=== PATIENT | female | born 1985 | race Caucasian/White ===

== ENCOUNTER 2019-02-26 02:35 | Inpatient (IN) | payer OTHER ==
[2019-02-26 03:08] LABS: ABS Basophils 0.1 10^3/ul (0-0.2); ABS Lymphocytes 1.1 10^3/ul (1.0-4.8); ABS Monocytes 0.9 10^3/ul (0-0.8); ABS Neutrophils 18.8 10^3/ul (1.5-7.7); Eosinophil % 0.1 %; Hematocrit 37 % (35-47); Hemoglobin 12.3 g/dL (12.0-16.0); Lymphocyte % 5.2 %; Mean Corpuscular HGB Conc 34 g/dL (31-36); Mean Corpuscular Hemoglobin 30 pg (27-31); Mean Corpuscular Volume 88 fL (80-97); Mean Platelet Volume 8.6 fL (7.4-10.4); Platelet Count 224 10^3/uL (150-450); Red Blood Count 4.14 10^6 /uL (3.70-4.87); Red Cell Distribution Width 14 % (10-15); White Blood Count 20.9 10^3/uL (3.5-10.8)
[2019-02-26] MEDS ORDERED: Oxytocin in LR* 20 UNITS/1,000 ML BAG IVPB ONE ×2 (03:35→06:05)
[2019-02-26] MEDS ORDERED: Lactated Ringers 1000 ML Bag* 1,000 ML IV ONE (04:10)
[2019-02-26] MEDS ORDERED: Buffered Lidocaine 1% SYRIN* 1 ML/SYRINGE INTRADERM ONE (04:10)
--- NOTE | 2019-02-26 04:20 | HP ---
General Information - Reason for Visit 34 y/o at 40w4d in active labor. History of prior x 1 and SAB x 1. Attempted home . Presented to hospital after experiencing pain across her abdomen at the incision site while pushing. Found to be fully dilated and +2 on arrival. HONORIO. FHT 150bpm with moderate variabilty, variable decels with pushing. Delivered precipitously after arrival to hospital. - General Information Maternal Age: 34 Grav: 3 Para: 1 SAB: 1 IEA: 0 Estimated Due Date: 02/22/19 Determined By: LMP Gestational Age in Weeks/Days: 40w4d Maternal Blood Type and Rh: O Negative - Results this Serology/RPR Result: Non-Reactive Rubella Result: Non-Immune HBsAg Result: Negative HIV Result: Negative GBS Culture Result: Negative Past Medical History Delivery History: Hx C/Section - x 1 for NRFHT 4 years ago Pertinent Past Medical History: Non-Contributory - RH Negative, declined Rhogam this , per pt and general doc antibody negative earlier in Pertinent Past Surgical History: See Records Past Surgical History Comment: x 1 Pertinent Family History: Non-Contributory - Antepartal Records Antepartal Records: Reviewed, Complicated by: - Hx of x 1. RH Negative Review of Systems Constitutional: Uncomfortable CV Complaint: No Respiratory: Shortness of Breath: No Gastrointestinal: No Nausea/Vomiting, Normal Bowel Movement Genitourinary: Bleeding, Leaking Fluid Musculoskeletal: No Complaint Neurological: No Headache, No Visual Changes Movement: Normal Exam Allergies/Adverse Reactions: Allergies No Known Allergies Allergy (Verified 01/26/15 16:10) Temp 97.0 Pulse 92 RR 20 HP 155/80 O2sat 99% Lab Values - Entire Visit: Laboratory Tests 02/26/19 02/26/19 02:55 02:55 WBC 20.9 H RBC 4.14 Hgb 12.3 Hct 37 MCV 88 MCH 30 MCHC 34 RDW 14 Plt Count 224 MPV 8.6 Neut % (Auto) 90.0 Lymph % (Auto) 5.2 Rush % (Auto) 4.3 Eos % (Auto) 0.1 Baso % (Auto) 0.4 Absolute Neuts (auto) 18.8 H Absolute Lymphs (auto) 1.1 Absolute Monos (auto) 0.9 H Absolute Eos (auto) 0.0 Absolute Basos (auto) 0.1 Absolute Nucleated RBC 0.0 Nucleated RBC % 0.0 Blood Type O Negative Antibody Screen Negative - Measurements Height: 5 ft 4 in Weight: 180 lb Weight in lbs: 180.544297 Body Mass Index (BMI): 30.9 Pre- Weight: 125 lb 4.409 oz Weight Gained This : 54.724 lbs and 0.007 ozs - Exam Breast: Breast Exam Deferred CVA: No CVA Tenderness Extremities: No Edema Heart: Normal Rhythm/Heart Sounds HEENT: No Significant Findings Lungs: Clear Bilaterally Rectal: Rectal Exam Deferred Reflexes: DTR 2+ - Abdominal Exam Abdomen Exam: Fundal Height Consistent with Dates - Ultrasound/Biophysical Profile Ultrasound Status: Not Done Targeted Exam Findings See L&D Outpatient Visit Provider Note for Findings: Yes Cervical Exam: Complete Effacement: Complete Station: +2 Presenting Part: Vertex - HONORIO Membrane Status: SROM Amniotic Fluid Evaluation: Gross Rupture Bleeding/Discharge: Bloody Show EFM Findings - External Monitor Findings Baseline Heart Rate: 150 External Monitor Findings: Variability Moderate, Variable or Late Deceleration Pattern Present External Monitor Findings Comment: Moderate variability, variable decels with pushing Contractions: Regular, 45-90 Seconds Assessment/Plan - Assessment 34 y/o at 40w4d homebirth transfer secondary to pain in labor. Presented to hospital already fully dilated and pushing. Delivered shortly after arrival. - Plan Plan: Admit - Anticipate Vaginal Delivery Plan Comment: Admitted. IV placed. CBC and Type and Screen obtained. Delivered shortly after arrival while verbally discussing TOLAC/CS consent. Routine post care. Rhogam if infant Rh+
[2019-02-26] MEDS ORDERED: Glycerin ADULT SUPP PR PRN (04:33)
[2019-02-26] MEDS ORDERED: Witch Hazel PAD* JAR TOPICAL PRN (04:33)
[2019-02-26] MEDS ORDERED: Dibucaine 1% 28.35 GM TUBE PR PRN (04:33)
[2019-02-26] MEDS ORDERED: Acetaminophen TAB* 325 MG PO PRN (04:33)
--- NOTE | 2019-02-26 04:33 | PROCNOTE ---
[facility] OB: Delivery Note - Delivery A Date of : 02/26/19 Time of : 03:25 [place] Sex: Male Score 1 Minute: 9 Score 5 Minutes: 9 Gestational Age in Weeks and Days at Delivery: 40 Weeks and 4 Days Delivery Method: Spontaneous Vaginal Labor: Spontaneous Did Patient attempt ?: Yes, Successful Amniotic Fluid: Clear Estimated Blood Loss: 500 Anesthesia/Analgesia: None Delivered By: Daowod Steele JR - Nursery Level of Nursery: Regular/Bedside - Perineum Perineal Injury: 2nd Degree Perineal Injury Comment: 2nd degree laceration repaired in usual fashion with 2- 0 vicryl Perineal Repair: By Delivering Practioner - Events Delivery Events of Note: Pitocin Only After Delivery - Risk for Falls Delivered OB Patient- Risk for Falls: Heavy Bleeding Fall Risk: Patient is at High Risk for Falls - Additional Delivery Notes Additional Delivery Notes: 34 y/o at 40w4d transfer to hospital from homebirth setting secondary to pain. Pt has history of x 1 4 years prior for NRFHT. District Wire Chief presents with patient and brings patient's complete records. FHT exhibits moderate variability, there is no evidence of uterine dehiscence, tracing overall reassuring. Patient was found to be fully dilated and +2, delivered shortly after arrival. Apgars 9 and 9, boy. 2nd degree perineal laceration repaired in the usual fashion with 2-0 vicryl. Mother and doing well at time of this note.
[2019-02-26] MEDS ORDERED: Lactated Ringers 1000 ML Bag* 1,000 ML IV SCH ×2 (05:00)
[2019-02-26] MEDS ORDERED: Ammonia Inhalant* 1 EA AMP ONE (05:59)
[2019-02-26] MEDS: Ibuprofen TAB* 600 MG PO PRN ×3 (07:53→22:20)
[2019-02-26] MEDS ORDERED: Simethicone TAB* 80 MG TAB.CHEW PO SCH (08:30)
[2019-02-26] MEDS ORDERED: Lidocaine 1% INJ* 10 MG/ML 30 ML SDV ONE (09:44)
[2019-02-26] MEDS: Docusate CAP* 100 MG PO SCH ×3 (11:21→20:35)
[2019-02-26] MEDS ORDERED: RHO D Immune Globulin (HUMAN)* 300 MCG = 1,500 I.U. INJ IM ONE (12:02)
--- NOTE | 2019-02-26 15:15 | PN ---
Progress Note - Progress Note Date of Service: 02/26/19 Note: S: Pt is POD#0 s/p successful . Transfer from
[2019-02-27] MEDS: Ibuprofen TAB* 600 MG PO PRN (04:26)
[2019-02-27 06:49] LABS: ABS Lymphocytes 1.8 10^3/ul (1.0-4.8); ABS Monocytes 0.6 10^3/ul (0-0.8); ABS Neutrophils 9.6 10^3/ul (1.5-7.7); Eosinophil % 0.3 %; Hematocrit 24 % (35-47); Hemoglobin 8.1 g/dL (12.0-16.0); Mean Corpuscular HGB Conc 35 g/dL (31-36); Mean Corpuscular Hemoglobin 31 pg (27-31); Mean Corpuscular Volume 89 fL (80-97); Mean Platelet Volume 8.2 fL (7.4-10.4); Platelet Count 194 10^3/uL (150-450); Red Blood Count 2.65 10^6 /uL (3.70-4.87); Red Cell Distribution Width 14 % (10-15)
[2019-02-27] MEDS: Docusate CAP* 100 MG PO SCH (08:01)
[2019-02-27 08:13] VITALS: BP 107/63
[2019-02-27] MEDS ORDERED: Tetan/Diph/Pertus SYR(Tdap)* 0.5 ML SYR(BOOSTRIX) use SYR contains LATEX IM ONE (09:00)
[2019-02-27] MEDS ORDERED: Ferrous Gluconate TAB* 324 MG TAB PO SCH (09:00)
== END 2019-02-27 10:54 | disposition home or self-care (01) | DRG 560 ==
LOC: MCHOBOUT 02:35 → MCHOB 03:07
PROVIDERS: ADMIT Obstetrics & Gynecology; ATTEND Obstetrics & Gynecology
PROC: 10E0XZZ Delivery of Products of Conception, External Approach (ICD-10-PCS; principal; 2019-02-26)
PROC: 4A1HXCZ Monitoring of Products of Conception, Cardiac Rate, External Approach (ICD-10-PCS; 2019-02-26)
PROC: 0KQM0ZZ Repair Perineum Muscle, Open Approach (ICD-10-PCS; 2019-02-26)
DX: O48.0 Post-term pregnancy (principal); Z37.0 Single live birth; Z3A.40 40 weeks gestation of pregnancy; O76 Abnormality in fetal heart rate and rhythm complicating labor and delivery; O70.1 Second degree perineal laceration during delivery; O62.3 Precipitate labor; O34.211 Maternal care for low transverse scar from previous cesarean delivery; O90.81 Anemia of the puerperium; Z67.41 Type O blood, Rh negative
CPT/HCPCS: 36415; 85025; 85461; 86850; 86900; 86901; 90715; A9270-GY; J2790